=== PATIENT | female | born 1975 | race Caucasian/White ===

== ENCOUNTER 2023-11-20 06:24 | Day surgery (SDC) | payer BC ==
[2023-11-20 06:37] VITALS: RESP 18; O2SAT 100
[2023-11-20] MEDS: Lactated Ringers 1,000 ML IV SCH (06:40)
[2023-11-20] MEDS ORDERED: DIPRIVAN 200 MG/20 ML IV ONE ×3 (08:17→08:44)
[2023-11-20 09:19] VITALS: TEMP 97.1
[2023-11-20 09:30] VITALS: BP 94/71; PULSE 61
--- NOTE | 2023-11-21 09:42 | OP ---
SURGERY DATE/TIME: 11/20/2023 6188 - 1605 PREOPERATIVE DIAGNOSIS: Screening. POSTOPERATIVE DIAGNOSIS: Colon polyps x7. PROCEDURE PERFORMED: Colonoscopy. SURGEON: Eusebio Penny MD ANESTHESIA: MAC by Mahesh Rojas CRNA. ESTIMATED BLOOD LOSS: Minimal. SPECIMENS: There were 7 hot forceps polypectomies. DESCRIPTION OF PROCEDURE AND FINDINGS: After informed written consent was obtained, the patient was taken to the endoscopy suite. She was placed in the left lateral decubitus position and anesthesia was titrated to the desired level of consciousness. Digital rectal exam showed normal sphincter tone and no internal lesions. The scope was then inserted in the rectum, and sequentially the entire colonic mucosa was traversed. The level of the cecum was reached and verified with direct visualization of the ileocecal valve. Upon withdrawal, there was a small sessile polyp in the proximal ascending colon, grasped with the forceps, cauterized, and removed in its entirety with good hemostasis. Upon further withdrawal, there was another small sessile polyp in the descending colon. It was removed with the hot forceps in the same fashion with good hemostasis. The entire lesion was adequately removed. In the distal sigmoid colon, there were 5 very small sessile polyps all in the same region of the distal sigmoid in close proximity. Those were all grasped with a forceps, cauterized and removed in its entirety and all sent in the same specimen container. Prior to withdrawal, retroflexion showed no internal lesions. Scope was removed. Patient was transferred to the recovery room in good condition and will follow up in 1 week for pathology results.
== END 2023-11-20 09:30 | disposition home or self-care (01) ==
LOC: SDC 06:24
PROVIDERS: ATTEND Family Medicine
DX: Z12.11 Encounter for screening for malignant neoplasm of colon (principal); K63.5 Polyp of colon
CPT/HCPCS: J2704